=== PATIENT | male | born 1960 | race Caucasian/White ===

== ENCOUNTER 2016-07-01 01:39 | Inpatient (IN) | payer OTHER ==
[~2016-07-01] VITALS: Ht 180.3 cm; Wt 104.3 kg
[~2016-07-01 01:39] MED LIST: ASPIRIN EC325 M2 PO; ASPIRIN EC81 M1 PO; COLACE100 M1 PO; DAILY VALUE1 EACH PO; DILAUDID2 M1 PO; DUEXIS 800-26.1 EACH PO; FIBER-TABS625 MG PO; FLOMAX0.4 M1 PO; HYDROCODON-ACE1 EAC2 PO; IRBESARTAN75 M1 PO; LEVOTHYROXINE50 MCG PO; LOPRESSOR50 M1 PO; METFORMIN HCL500 M3 PO; MIRALAX17 G1 PO; MS CONTIN30 M1 PO; VITAMIN B-121000 MC3 PO; VITAMIN D31000 UNI1 PO
[2016-07-01] MEDS ORDERED: MORPHINE SULFAT15 M3 PO (08:59)
[2016-07-01] MEDS ORDERED: DILAUDID2 M1 PO (08:59)
[2016-07-01] MEDS ORDERED: COLACE100 M1 PO (08:59)
[2016-07-01] MEDS ORDERED: MIRALAX119 GM PO (08:59)
[2016-07-01] MEDS ORDERED: ASPIRIN EC325 M2 PO (08:59)
--- NOTE | 2016-07-01 09:01 | Admission Core Measures ---
Admission Meds I reviewed the following Meds: Current Medications Sig/Antonette Start time Last Medication Dose Stop Time Status Admin Cefazolin Sodium 2,000 MG ONE 07/01 0000 NR (Kefzol-Ancef Inj) 07/01 2359 Levothyroxine Sodium 0.05 MG DAILY AC 07/01 1000 AC (Synthroid) Losartan Potassium 25 MG DAILY 07/01 1000 AC (Cozaar) Metoprolol Tartrate 50 MG BID 07/01 1000 AC (Lopressor) Tamsulosin HCl 0.4 MG QPM 07/01 2200 AC (Flomax) Acute Coronary Syndrome Inclusion Criteria ACS Diagnosis No Inpatient Core Measures LDL Reminder: If No, please order W/I first 24hr of stay Congestive Heart Failure Inclusion Criteria CHF Diagnosis No Cerebrovascular accident Inclusion Criteria CVA/TIA Diagnosis No Inpatient Core Measures Bedside Swallow Eval Reminder: If BSE failed, place ST order Antithrombotic Reminder: Order Antithrombotic Medication by end of day 2 Antithrombotic Reminder: Document Reason Antithrombotic Not ordered by end of day 2 AFIB/Flutter Reminder: If Present, add to problem list AFIB/Flutter Reminder: Order Anticoag Medication for pts with AFIB/Flutter Atherosclerosis Reminder: If Present, add to problem list LDL Reminder: If No, please order W/I first 24hr of stay PT Order Reminder: If No, please order Venous thromboembolism Inpatient Core Measures VTE Risk Factors: Age > 40, Obesity, Surgery VTE Prophylaxis Ordered Inpt Mech & Pharm No Mech VTE prophylaxis d/t No contraindications No VTE Pharm Prophylaxis d/t No contraindications Inclusion Criteria - Per Current guidelines, there needs to be overlap - treatment for the first 5 days of Warfarin therapy. - Parenteral Anticoagulation (IV or SC) needs to be - given along with Warfarin therapy. VTE Diagnosis No VTE Type NONE VTE Confirmed by (Test) NONE Problem List As ranked by this Provider includes Assessment & Plan 1. Status post total hip replacement, left HOME MEDS Home Med List Aspirin (Ecotrin*) 325 MG TABLET.DR 1 TAB PO BID blood thinner Calcium Polycarbophil (Fiber-Tabs) (Unknown Strength) TABLET 1 TAB PO DAILY BOWEL HEALTH (Reported) Cholecalciferol (Vitamin D3) (Vitamin D3) 1,000 UNIT CAPSULE 1 CAP PO DAILY SUPPLEMENT (Reported) Cyanocobalamin (Vitamin B-12) 1,000 MCG TABLET 1 TAB PO DAILY SUPPLEMENT ( Reported) Docusate Sodium (Colace) 100 MG CAPSULE 1 CAP PO BID PRN CONSTIPATION Hydromorphone HCl (Dilaudid) 2 MG TABLET 1-2 TAB PO Q4-6P PRN PAIN Irbesartan 75 MG TABLET 1 TAB PO DAILY HTN (Reported) Levothyroxine Sodium 50 MCG TABLET 1 TAB PO DAILY THYROID (Reported) Metformin HCl 500 MG TABLET 1 TAB PO BID DM (Reported) Metoprolol Tartrate (Lopressor) 50 MG TABLET 1 TAB PO BID HTN (Reported) Morphine Sulfate (Morphine Sulfate ER) 15 MG TABLET.ER 1 TAB PO BID PAIN Multivitamin (Daily Value) 1 EACH TABLET 1 TAB PO DAILY SUPPLEMENT (Reported) Polyethylene Glycol 3350 (Miralax) 17 GRAM/DOSE POWDER 17 GM PO DAILY PRN CONSTIPATION Tamsulosin HCl (Flomax) 0.4 MG CAP.ER.24H 1 CAP PO QPM PROSTATE (Reported)
--- NOTE | 2016-07-01 09:05 | Patient Discharge Instructions ---
Discharge Instructions General Discharge Information You were seen/treated for: RIGHT HIP PAIN You had these procedures: 07/01/16 right total hip arthroplasty Watch for these problems: Redness, swelling, fever, signs of infection. Uncontrolled pain, Excessive bleeding. Decreased range of motion or unable to bear weight. Chest pain, shortness of breath. Call Surgeon to remove: Stitches Do not soak the wound: Yes No bath, but you may shower: Yes Other wound care: Daily dry dressing changes or as needed Diet Continue normal diet: Yes Activity Activity Self Limited: Yes Activity Limited to: Weight bear as tolerated Additional ACTIVITY Info: Daily physical therapy Acute Coronary Syndrome Inclusion Criteria At DC or during hospital stay patient has or had the following: ACS DIAGNOSIS No Discharge Core Measures Meds if any: Prescribed or Continued at Discharge Meds if any: NOT Prescribed or Continued at Discharge Congestive Heart Failure Inclusion Criteria At DC or during hospital stay patient has or had the following: CHF DIAGNOSIS No Discharge Core Measures Meds if any: Prescribed or Continued at Discharge Meds if any: NOT Prescribed or Continued at Discharge Cerebrovascular accident Inclusion Criteria At DC or during hospital stay patient has or had the following: CVA/TIA Diagnosis No Discharge Core Measures Meds if any: Prescribed or Continued at Discharge Meds if any: NOT Prescribed or Continued at Discharge Venous thromboembolism Inclusion Criteria VTE Diagnosis No VTE Type NONE VTE Confirmed by (Test) NONE Discharge Core Measures - Per Current guidelines, there needs to be overlap - treatment for the first 5 days of Warfarin therapy. - If discharged on Warfarin prior to 5 days of - overlap therapy, the patient will need to be - assessed for post discharge needs including - *Post discharge parental anticoagulation - *Warfarin and/or parental anticoagulation education - *Follow up date to check INR post discharge At least 5 days overlap therapy as Inpatient No Meds if any: Prescribed or Continued at Discharge Note: Overlap Therapy is Warfarin and Anticoagulant Meds if any: NOT Prescribed or Continued at Discharge
--- NOTE | 2016-07-01 09:06 | Surg Short-stay <48hrs Dis Sum ---
Visit Information Visit Dates Admission Date: 07/01/16 Discharge Date: 07/01/16 Surgical Short Stay DC Summary Admission Diagnosis: Right hip pain Final Diagnosis: Same Procedure(s): 06/23/2016 right total hip arthroplasty Summary/Significant Findings: Patient admitted to floor following listed procedure. Patient ambulated with PT upon arrival to the floor. Patient continued to progress well. Upon discharge patient is afebrile, tolerating diet, pain controlled, ambulating well with rolling walker and PT. Condition at Discharge: Good Discharge Disposition: home health services Discharge instructions provided to patient/family: Yes Post discharge follow-up plan: Call Dr. Cook's office to schedule/confirm appointment.
--- NOTE | 2016-07-01 10:30 | RADIOLOGY REPORT ---
EXAMINATION: XR HIP, RIGHT CLINICAL INFORMATION: Right hip replacement. COMPARISON: None TECHNIQUE: Two views of the right hip. FINDINGS: Status post right total hip arthroplasty. The femoral head prosthesis is well centered within the acetabular cup. The lateral version of the acetabular cup cannot be measured due to lack of inclusion of the pelvis in the [id number]. The acetabular cup is difficult to visualize on the lateral radiograph due to patient body habitus and/or insufficient photon penetration through the hips. The tip of the femoral stem is well centered in the proximal femoral diaphysis. No acute periprosthetic fracture. There is mild postoperative soft tissue swelling and soft tissue emphysema of the right hip. IMPRESSION: No evidence of postoperative complication. No periprosthetic fracture after the right total hip arthroplasty. Note that the acetabular cup is suboptimally visualized on the lateral radiograph.
[2016-07-01 11:00] VITALS: BP 108/72
--- NOTE | 2016-07-01 13:32 | PN- Orthopedic ---
Subjective Subjective: Pt oob, ambulating with PT, pain tolerable with po meds Tolerating diet without nausea No complaints post op Objective Vital Signs and I&Os Vital Signs Date Time Temp Pulse Resp B/P Pulse O2 O2 Flow FiO2 Ox Delivery Rate 07/01 1100 97.6 64 16 108/72 100 Room Air Intake & Output 07/01 1600 07/01 0800 07/01 0000 06/30 1600 06/30 0800 06/30 0000 Intake Total Output Total Balance Patient 230 lb Weight Physical Exam: afebrile, vss General: alert and oriented times three Chest:clear anteriorly bilaterally, RRR Abd: soft, good bs Ext: warm, no edema, positive sensate, no calf tenderness Wound: dressed, dry Current Medications: Current Medications Sig/Antonette Start time Last Medication Dose Route Stop Time Status Admin Acetaminophen 650 MG Q4P PRN 07/01 1100 AC PO Aspirin 325 MG BID 07/01 1000 AC PO Bupivacaine HCl/ 30 ML .STK-MED ONE 07/01 1002 DC Epinephrine Bitart SC 07/01 1003 Cefazolin Sodium 2 GM IQ8 07/01 1600 AC N/A 1 UNIT IV 07/02 0029 Cefazolin Sodium 2,000 MG ONE 07/01 0000 DC IV 07/01 2359 Clonidine 1 MCG .STK-MED ONE 07/01 1002 DC EPID 07/01 1003 Docusate Sodium 100 MG DAILY 07/01 1000 AC PO Hydromorphone HCl 2 MG Q4P PRN 07/01 1100 AC PO Hydromorphone HCl 4 MG Q4P PRN 07/01 1100 AC 07/01 PO 1219 Hydromorphone HCl 1 MG Q3P PRN 07/01 1100 AC IV Insulin Human Regular 0 TIDAC/HS 07/01 1200 AC 07/01 SC 1221 Levothyroxine Sodium 0.05 MG DAILY AC 07/01 1000 AC PO Losartan Potassium 25 MG DAILY 07/01 1000 AC PO Metoprolol Tartrate 50 MG BID 07/01 1000 AC PO Ondansetron HCl 4 MG Q6P PRN 07/01 1100 AC IV Oxycodone/ 1 TAB .STK-MED ONE 07/01 0820 DC Acetaminophen PO 07/01 0821 Polyethylene Glycol 17 GM DAILY 07/01 1000 AC PO Povidone Iodine 1 RENATE .STK-MED ONE 07/01 1002 DC TOP 07/01 1003 Sodium Chloride 1,000 ML .[id number] 07/01 1100 AC 07/01 IV 1221 Tamsulosin HCl 0.4 MG QPM 07/01 2200 AC PO Assessment/Plan Assessment/Plan 56 yo male s/p L TEODORO ambulating without difficulty await void pain well controlled pt recommending home with services plan to dc home once able to void, fu instructions given, asa 325mg po bid for dvt ppx Core Measures/Miscellaneous Venous Thromboembolism VTE Risk Factors: Age > 40 VTE Contraindications: No Contraindications VTE Prophylaxis Ordered Inpt: Mech & Pharm VTE Diagnosis: No VTE Type: NONE VTE Confirmed by (Test): NONE Beta Chanda Is Beta Chanda a Home Med? Yes If Yes, Was This Ordered Today? Yes Antibiotics Is Patient on Antibiotics? Yes If Yes: prophylaxis
--- NOTE | 2016-07-01 16:40 | Operative Report ---
Operative/Inv Procedure Report Surgery Date: 07/01/16 Name of Procedure: Right total hip replacement Pre-Operative Diagnosis: Primary right hip DJD Post-Operative Diagnosis: Same Estimated Blood Loss: 250 Surgeon/Community Associate: ETHAN MENDOZA,LUCINA Vazquez Anesthesia: block Operative/Procedure Note Note: Description of Procedure: The patient was taken to the operating room and positively identified. After induction of spinal anesthesia and administration of appropriate pre-operative antibiotics, the patient was positioned supine on the operating room table and all bony prominences were well padded. After performing a surgical timeout, the right lower extremity was prepped and draped in the usual sterile fashion. A direct anterior approach was made to the right hip. The incision was carried sharply through superficial soft tissues to the level of the fascia. Meticulous hemostasis was maintained with Bovie electocautery. The fascia over the tensor fascia aroldo muscle was opened sharply and the interval between the TFL and the sartorius was entered bluntly taking care to stay lateral to the lateral femoral cutaneous nerve. Retractors were placed around the femoral neck and the pericapsular fat was identified. The ascending branches of the lateral femoral circumflex vessels were identified and carefully coagulated. The pericapsular fat and anterior capsule were then resected. A napkin ring osteotomy was performed and the femoral head was removed without difficulty. Attention was then turned to the acetabulum. After appropriate placement of retractors, the acetabulum was exposed. Soft tissue was cleaned from the acetabular margin and notch. Overhanging osteophytes were removed and the teardrop was exposed. The acetabulum was then sequentially reamed to accept a 60 mm Kim Tritanium hemispherical solid back shell. This was impacted into place in the appropriate position and fitted with a 36 mm Trident X3 zero degree polyethylene insert. Attention was then turned to the femur. After performing the appropriate ligament releases, the proximal femur was exposed. It was then sequentially broached to accept a size 5 Pooler Anato stem. This was trialed for leg length and stability. The trial component was removed and the final component was impacted into place. The trunnion was carefully cleaned and fit with a 36 mm, + 0 Biolox delta ceramic femoral head. The hip was reduced and put through a full range of motion and found to be stable. The articular space was then irrigated with sterile saline. The periarticular soft tissues were infilitrated with Marcaine. The fascial layer was closed with interrupted #1 vicryl suture and the skin was re-approximated with interrupted 2 -0 vicryl. The skin was closed with a running 3-0 V-Lock suture. Steri-strips and a sterile dressing were applied. The patient was awakened and taken to the recovery room in satisfactory condition.
[2016-10-09] MEDS ORDERED: TOPROL XL100 M1 PO (11:53)
== END 2016-07-01 15:35 | disposition home health service (06) | DRG 470 ==
LOC: SDA 01:39 → 2NA 10:40
PROVIDERS: ADMIT Orthopaedic Surgery
PROC: 0SR904A Replacement of Right Hip Joint with Ceramic on Polyethylene Synthetic Substitute, Uncemented, Open Approach (ICD-10-PCS; principal; 2016-07-01)
DX: M16.11 Unilateral primary osteoarthritis, right hip (principal); I48.91 Unspecified atrial fibrillation
CPT/HCPCS: 2NAP; 73502-RT; 88304; 97001-GP; 97112-GO; 97116-GO; 97161-GP; 97530-GO; J0690; J0735; J2405

== ENCOUNTER 2016-10-14 04:18 | Inpatient (IN) | payer OTHER ==
[~2016-10-14] VITALS: Ht 180.3 cm; Wt 106.6 kg
[~2016-10-14 04:18] MED LIST changes: +MIRALAX119 GM PO; +MORPHINE SULFAT15 M3 PO; +TOPROL XL100 M1 PO
--- NOTE | 2016-10-14 13:14 | Admission Core Measures ---
Admission Meds I reviewed the following Meds: Current Medications Sig/Antonette Start time Last Medication Dose Stop Time Status Admin Acetaminophen 975 MG ONCE 10/14 0000 NR (Tylenol) 10/14 2358 Cefazolin Sodium 2,000 MG ONCE 10/14 NR (Kefzol-Ancef Inj) 10/14 2358 Levothyroxine Sodium 0.05 MG DAILY AC 10/15 0700 AC (Synthroid) Losartan Potassium 25 MG DAILY 10/15 1000 AC (Cozaar) Metoprolol Succinate 100 MG DAILY 10/15 1000 AC (Toprol Xl) Oxycodone HCl 10 MG ONCE 10/14 0000 NR (Roxicodone) 10/14 2358 Tamsulosin HCl 0.4 MG QPM 10/14 2200 AC (Flomax) Acute Coronary Syndrome Inclusion Criteria ACS Diagnosis No Inpatient Core Measures LDL Reminder: If No, please order W/I first 24hr of stay Congestive Heart Failure Inclusion Criteria CHF Diagnosis No Cerebrovascular accident Inclusion Criteria CVA/TIA Diagnosis No Inpatient Core Measures Bedside Swallow Eval Reminder: If BSE failed, place ST order Antithrombotic Reminder: Order Antithrombotic Medication by end of day 2 Antithrombotic Reminder: Document Reason Antithrombotic Not ordered by end of day 2 AFIB/Flutter Reminder: If Present, add to problem list AFIB/Flutter Reminder: Order Anticoag Medication for pts with AFIB/Flutter Atherosclerosis Reminder: If Present, add to problem list LDL Reminder: If No, please order W/I first 24hr of stay PT Order Reminder: If No, please order Venous thromboembolism Inpatient Core Measures VTE Risk Factors: Age > 40, Surgery No [facility] VTE prophylaxis d/t No contraindications No VTE Pharm Prophylaxis d/t No contraindications Inclusion Criteria - Per Current guidelines, there needs to be overlap - treatment for the first 5 days of Warfarin therapy. - Parenteral Anticoagulation (IV or SC) needs to be - given along with Warfarin therapy. VTE Diagnosis No VTE Type NONE VTE Confirmed by (Test) NONE Problem List As ranked by this Provider includes Assessment & Plan 1. Status post total hip replacement, left HOME MEDS Home Med List Aspirin (Ecotrin*) 325 MG TABLET.DR 1 TAB PO BID blood thinner Calcium Polycarbophil (Fiber-Tabs) (Unknown Strength) TABLET 1 TAB PO DAILY BOWEL HEALTH (Reported) Cholecalciferol (Vitamin D3) (Vitamin D3) 1,000 UNIT CAPSULE 1 CAP PO DAILY SUPPLEMENT (Reported) Cyanocobalamin (Vitamin B-12) 1,000 MCG TABLET 1 TAB PO DAILY SUPPLEMENT ( Reported) Irbesartan 75 MG TABLET 1 TAB PO DAILY HTN (Reported) Levothyroxine Sodium 50 MCG TABLET 1 TAB PO DAILY THYROID (Reported) Metformin HCl 500 MG TABLET 1 TAB PO BID DM (Reported) Metoprolol Succ XL (Toprol XL) 100 MG TAB.ER.24H 1 TAB PO DAILY HTN (Reported ) Polyethylene Glycol 3350 (Miralax) 17 GRAM/DOSE POWDER 17 GM PO DAILY PRN CONSTIPATION Tamsulosin HCl (Flomax) 0.4 MG CAP.ER.24H 1 CAP PO QPM PROSTATE (Reported)
[2016-10-14] MEDS ORDERED: PRILOSEC OTC20 M1 PO (13:16)
[2016-10-14] MEDS ORDERED: ASPIRIN EC325 M2 PO (13:16)
[2016-10-14] MEDS ORDERED: MIRALAX17 G1 PO (13:16)
[2016-10-14] MEDS ORDERED: COLACE100 M1 PO (13:16)
[2016-10-14] MEDS ORDERED: MS CONTIN30 M1 PO (13:16)
[2016-10-14] MEDS ORDERED: DILAUDID2 M1 PO (13:16)
--- NOTE | 2016-10-14 13:21 | Patient Discharge Instructions ---
Discharge Instructions General Discharge Information You were seen/treated for: Mechanical complications of left total hip replacement You had these procedures: Revision left total hip replacement Watch for these problems: Increasing pain despite the use of pain medication. Increasing redness, warmth, or swelling. Drainage of any type from incision. Inability to bear weight on left leg. Fever greater than 101.5 degrees. Do not soak the wound: Yes No bath, but you may shower: Yes Other wound care: Keep wound clean and dry. Daily dry dressing changes. No ointments of any type on incision, no exceptions. Diet Continue normal diet: Yes Recommended Diet: Diabetic Additional DIET Information: Advance as tolerated Activity Full Activity/No Limits: No Activity Self Limited: Yes Pounds, do NOT lift more than: 10 Additional ACTIVITY Info: weight bear as tolerated left hip Acute Coronary Syndrome Inclusion Criteria At DC or during hospital stay patient has or had the following: ACS DIAGNOSIS No Discharge Core Measures Meds if any: Prescribed or Continued at Discharge Meds if any: NOT Prescribed or Continued at Discharge Congestive Heart Failure Inclusion Criteria At DC or during hospital stay patient has or had the following: CHF DIAGNOSIS No Discharge Core Measures Meds if any: Prescribed or Continued at Discharge Meds if any: NOT Prescribed or Continued at Discharge Cerebrovascular accident Inclusion Criteria At DC or during hospital stay patient has or had the following: CVA/TIA Diagnosis No Discharge Core Measures Meds if any: Prescribed or Continued at Discharge Meds if any: NOT Prescribed or Continued at Discharge Venous thromboembolism Inclusion Criteria VTE Diagnosis No VTE Type NONE VTE Confirmed by (Test) NONE Discharge Core Measures - Per Current guidelines, there needs to be overlap - treatment for the first 5 days of Warfarin therapy. - If discharged on Warfarin prior to 5 days of - overlap therapy, the patient will need to be - assessed for post discharge needs including - *Post discharge parental anticoagulation - *Warfarin and/or parental anticoagulation education - *Follow up date to check INR post discharge At least 5 days overlap therapy as Inpatient No Meds if any: Prescribed or Continued at Discharge Note: Overlap Therapy is Warfarin and Anticoagulant Meds if any: NOT Prescribed or Continued at Discharge
--- NOTE | 2016-10-14 13:25 | Surgical Discharge Summary ---
Visit Information Visit Dates Admission Date: 10/14/16 Discharge Date: 10/15/16 History of Present Illness Chief Complaint: Mechanical complications following left total hip replacement. Medical History Cardiovascular: A FIB HYPERTENSION Respiratory: SLEEP APNEA Gastrointestinal: GERD Hepatic: HEPATITIS C Endocrine: diabetes, hypothyroidism History of MRSA: No History of VRE: No History of CDIFF: No Surgical History Pertinent Surgical History: R RCR C5-7 TONSILECTOMY R & L KNEE REPLACEMENT AFIB ABLATION HIATAL HERNIA Psychosocial History What is Your Primary Language? Lebanese Review of Systems: See H&P Hospital Course Course Attending Physician: LUCINA LONG MD Primary Care Physician: MAIN FUNG MD Hospital Course: Aaron was admitted to the hospital on 10/14/2016 for a revision of a left total hip replacement. He tolerated the procedure well and was transferred to a general surgical floor. His vital signs remained stable and within normal limits. His neurovascular status remained intact. He voided spontaneously. His diet was advanced and tolerated. His pain was well controlled with the use of po pain medications. He was evaluated and treated by physical therapy and was deemed appropriate for discharge. Allergies: Uncoded Allergies: SEASONAL ALLERGIES (Intermediate, NASAL CONGESTION 10/09/16) Disposition Summary Disposition Principal Diagnosis: Mechanical complications of left total hip replacement. Additional Diagnosis: None Discharge Disposition: home health services Discharge Instructions General Discharge Information Code Status: Full Code Patient's Diet: Diabetic, advance as tolerated Patient's Activity: WBAT Follow-Up Instructions/Appts: Follow up with Dr. Long in 6 weeks from date of surgery. Call office to arrange or confirm appointment. Medications at Discharge Discharge Medications: Stop taking the following medications: Aspirin (Ecotrin*) 325 MG TABLET. ORAL TWICE DAILY Qty = 60 Polyethylene Glycol 3350 (Miralax) 17 GRAM/DOSE POWDER ORAL DAILY as needed for CONSTIPATION Qty = 527 Continue taking these medications: Irbesartan (Irbesartan) 75 MG TABLET 1 Tablet ORAL DAILY Comments: Last Taken:LORSARTAN TAB COZAAR GIVEN 10/15/16 AT 0840 Levothyroxine Sodium (Levothyroxine Sodium) 50 MCG TABLET 1 Tablet ORAL DAILY Comments: Last Taken:10/15/16 Time:0633 Metformin HCl (Metformin HCl) 500 MG TABLET 1 Tablet ORAL TWICE DAILY Comments: Last Taken:NOT TAKEN IN HOSPITAL Time: Tamsulosin HCl (Flomax) 0.4 MG CAP.ER.24H 1 Capsule ORAL Every night Comments: Last Taken:10/15/16 Time:0835 Calcium Polycarbophil (Fiber-Tabs) (Unknown Strength) TABLET 1 Tablet ORAL DAILY Comments: NOT GIVEN IN HOSPITAL Cholecalciferol (Vitamin D3) (Vitamin D3) 1,000 UNIT CAPSULE 1 Capsule ORAL DAILY Comments: NOT GIVEN IN HOSPITAL Cyanocobalamin (Vitamin B-12) 1,000 MCG TABLET 1 Tablet ORAL DAILY Comments: NOT GIVEN IN HOSPITAL Metoprolol Succ XL (Toprol XL) 100 MG TAB.ER.24H 1 Tablet ORAL DAILY Comments: Last Taken:10/15/16 Time:0840 Start taking the following new medications: Aspirin (Ecotrin*) 325 MG TABLET. 1 Tablet ORAL TWICE DAILY Qty = 60 No Refills Comments: Last Taken:10/15/16 Time:0840 Docusate Sodium (Colace) 100 MG CAPSULE 1 Capsule ORAL TWICE DAILY Qty = 14 No Refills Instructions: DISCONTINUE USE IF YOU DEVELOP LOOSE STOOL OR DIARRHEA Comments: Last Taken:10/15/16 Time:0830 Hydromorphone HCl (Dilaudid) 2 MG TABLET 1-2 Tablet ORAL EVERY 4-6 HOURS as needed for PAIN Qty = 36 No Refills Comments: Last Taken:10/15/16 Time:0842 Morphine Sulfate (Ms Contin) 30 MG TABLET.ER 1 Tablet ORAL TWICE DAILY Qty = 6 No Refills Comments: Last Taken:10/15/16 Time:0842 Omeprazole Magnesium (Prilosec Otc) 20 MG TABLET. 1 Tablet ORAL DAILY Qty = 30 No Refills Comments: Last Taken:10/15/16 Time:0632 Polyethylene Glycol 3350 (Miralax) 17 GRAM POWD.PACK 1 Packet ORAL DAILY Qty = 7 No Refills Instructions: dissolve in water, DISCONTINUE USE IF YOU DEVELOP LOOSE STOOL OR DIARRHEA Comments: Last Taken:PT REFUSED MEDICATION Time:
--- NOTE | 2016-10-14 16:02 | Operative Report ---
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 After induction of spinal and general anesthesia and administration of appropriate pre -operative antibiotics, the patient was positioned supine on the operating room table and all bony prominences were well padded. After performing a surgical timeout, the left lower extremity was prepped and draped in the usual sterile fashion. A direct anterior approach was made to the left hip. The incision was carried sharply through superficial soft tissues to the level of the fascia. Meticulous hemostasis was maintained with Bovie electocautery. The fascia over the tensor fascia aroldo muscle was opened sharply and the interval between the TFL and the sartorius was entered bluntly taking care to stay lateral to the lateral femoral cutaneous nerve. Scar tissue was resected until the femoral neck and head were visible. Retractors were placed and scar tissue resection continued until the hip could be dislocated. Once the hip was dislocated and further scar tissue release was carried out, the femoral head was disimpacted without difficulty. Posterior capsular scar was incised as was medial capsule. This allowed mobilization of the femur anteriorly and medially. It was then noted that the femoral stem clearly had micromotion when manipulated. A single Dall-Miles cable was placed around the proximal femur prophylactically. Utilizing a small curet soft tissue was cleared from the medial calcar region as well as the area of the greater trochanter until the heel of the implant was fully exposed. Flexible osteotomes were used to sure that any spot welds were disrupted prior to disimpacting the stem. The stem disimpacting tool for the Anato stem was utilized to back slap the stem out. There is little bony on growth was noted. Attention was then turned to the distal pedestal. Quofore T handle pointed awls were used to penetrate the distal pedestal. Cylindrical reamers were then used to re-create the canal. The canal was then sequentially reamed and broached to accept a size 9 Kim Secur-Fit Advanced 127 neck angle stem. This was then trialed for leg length and stability. The trial component was removed and the final component was impacted into place. The trunnion was well cleaned and fit with a 36 mg -2.5 Biolox delta ceramic femoral head. The articular space was then irrigated with sterile saline. A medium Hemovac drain was left in the intra-articular space. The periarticular soft tissues were infilitrated with Marcaine. The fascial layer was closed with interrupted #1 vicryl suture and the skin was re-approximated with interrupted 2-0 vicryl. The skin was closed with a running 3-0 V-Lock suture. Steri-strips and a sterile dressing were applied. The patient was awakened and taken to the recovery room in satisfactory condition.
--- NOTE | 2016-10-14 16:56 | RADIOLOGY REPORT ---
EXAMINATION: XR HIP, LEFT CLINICAL INFORMATION: Left total hip replacement COMPARISON: 05/06/2016 TECHNIQUE: AP and crosstable lateral views of the left hip. FINDINGS: Prosthetic components of the left total hip arthroplasty are appropriately aligned. No periprosthetic fracture. Proximal femoral cerclage wire and drainage tubing are in place. Gas from recent surgery is present in the surrounding soft tissues. IMPRESSION: Normal postoperative appearance of the left total hip prosthesis status post revision.
--- NOTE | 2016-10-14 17:55 | NUR ---
ARRIVED TO FLOOR. A & O X 3. ON RA. VSS. C/O MILD PAIN TO LEFT HIP. DSG C/D/I. HEMOVAC TO SELF SUCTION. +CMS. ORIENTED TO CALL SYSTEM. WILL MONITOR.
[2016-10-14 18:15] VITALS: BP 128/80
[2016-10-14 20:07] VITALS: BP 126/90
--- NOTE | 2016-10-14 20:13 | PN- Orthopedic ---
Subjective Subjective: POC S/P LEFT TEODORO REVISION NO MAJOR COMPLAINTS DENIES CP, SOB, NO N+V WITH DIET Objective Vital Signs and I&Os Vital Signs Date Time Temp Pulse Resp B/P B/P Pulse O2 O2 Flow FiO2 Mean Ox Delivery Rate 10/14 2006 98.1 73 20 126/90 96 Room Air 10/14 1815 97.9 61 16 128/80 97 Room Air Physical Exam: CV: RRR LUNGS: CLEAR ABD: SOFT, +BS, EXT: LEFT THIGH SOFT DISTAL CMS INTACT BILAT ROSE MARIE-MINIMAL SANGUINOUS DRAINAGE Assessment/Plan Assessment/Plan ORTHO STABLE PLAN OOB WITH PT IN AM ASA FOR DVT PROPHYLAXIS PLAN FOR HOME D/C IN AM Core Measures/Miscellaneous Venous Thromboembolism VTE Risk Factors: Age > 40, Surgery VTE Contraindications: No Contraindications VTE Diagnosis: No VTE Type: NONE VTE Confirmed by (Test): NONE Beta Chanda Is Beta Chanda a Home Med? Yes Antibiotics Is Patient on Antibiotics? Yes If Yes: prophylaxis
[2016-10-14 22:35] VITALS: BP 146/100
[2016-10-15 00:07] VITALS: BP 142/80
[2016-10-15 04:18] VITALS: BP 128/76
--- NOTE | 2016-10-15 07:42 | PN- Orthopedic ---
Subjective Subjective: The patient seen this morning postoperatively day #1. He reports that he is slightly more uncomfortable than his initial procedure. He had no other complaints at the current time and was a good work with physical therapy. Objective Vital Signs and I&Os Vital Signs Date Time Temp Pulse Resp B/P B/P Pulse O2 O2 Flow FiO2 Mean Ox Delivery Rate 10/15 417 98.4 80 20 128/76 98 Room Air 10/15 0007 98.2 75 20 142/80 96 Room Air 10/14 2234 98.3 81 20 146/100 97 Room Air 10/14 2107 73 126/90 10/14 2006 98.1 73 20 126/90 96 Room Air 10/14 181 97.9 61 16 128/80 97 Room Air Intake & Output 10/15 0810/15 0000 10/14 1600 10/14 0810/14 1600 Intake Total 400 Output Total 1200 730 Balance -1200 -330 Intake, IV 300 Intake, Oral 100 Number 0 Bowel Movements Output, 80 Drainage Output, Urine 1200 650 Patient 235 lb Weight Weight Reported by Patient Measurement Method Physical Exam: Gen.: Alert and in no obvious distress Skin: Warm and dry Extremities: Bilateral lung studies are warm without calf tenderness or significant edema. Gross motor and sensory were intact. Left surgical dressing was blood tinged but otherwise intact. There is a Suretrans drain in place holding suction with sinus drainage in the collection chamber. Assessment/Plan Assessment/Plan Assessment: 56-year-old male status post revision left total hip arthroplasty postoperative day 1. The patient is progressing as expected however his pain is not adequately managed. Plan: Add MS Contin 30 mg by mouth twice a day to existing pain regiment Hep-Lock IV fluids Follow-up morning laboratory studies Out of bed with physical therapy MT Hemovac GI and DVT prophylaxis Home later today if goals met Core Measures/Miscellaneous Venous Thromboembolism VTE Risk Factors: Age > 40, Surgery VTE Contraindications: No Contraindications VTE Diagnosis: No VTE Type: NONE VTE Confirmed by (Test): NONE Beta Chanda Is Beta Chanda a Home Med? Yes Antibiotics Is Patient on Antibiotics? Yes If Yes: prophylaxis
[2016-10-15 08:07] LABS: ABSOLUTE BASOPHIL COUNT 0 /CUMM (0.0-0.2); ABSOLUTE EOSINOPHIL COUNT 0 /CUMM (0.0-0.7); ABSOLUTE GRANULOCYTE CT 9.1 /CUMM (1.4-6.5); ABSOLUTE LYMPH COUNT 1.1 /CUMM (1.2-3.4); ABSOLUTE MONOCYTE COUNT 0.8 /CUMM (0.10-0.60); BASOPHIL % 0.1 % (0.0-2.0); EOSINOPHIL % 0.4 % (0-5); GRANULOCYTE % 82.8 % (42.2-75.2); HEMATOCRIT 35.7 % (42-52); MEAN CORPUSCULAR HGB 28.2 PG (27.0-31.0); MEAN CORPUSCULAR HGB CONC 33.5 G/DL (33.0-37.0); MEAN CORPUSCULAR VOLUME 84.2 FL (80.0-94.0); MEAN PLATELET VOLUME 9.3 FL (7.4-10.4); PLATELET COUNT 147 /CUMM (130-400); RBC DISTRIBUTION WIDTH 14.7 % (11.5-14.5); RED BLOOD CELL CT 4.24 /CUMM (4.70-6.10)
[2016-10-15 08:41] VITALS: BP 140/80
== END 2016-10-15 11:31 | disposition home health service (06) | DRG 468 ==
LOC: SDA 04:18 → ENRESERV 15:31 → 2NA 18:00 → ENPENDDIS 10-15 07:43 → 2NA 10-15 11:31
PROVIDERS: Nurse Practitioner; ADMIT Orthopaedic Surgery
PROC: 0SRS03A Replacement of Left Hip Joint, Femoral Surface with Ceramic Synthetic Substitute, Uncemented, Open Approach (ICD-10-PCS; principal; 2016-10-14)
PROC: 0SPS0JZ Removal of Synthetic Substitute from Left Hip Joint, Femoral Surface, Open Approach (ICD-10-PCS; principal; 2016-10-14)
DX: T84.091A Other mechanical complication of internal left hip prosthesis, initial encounter (principal); I10 Essential (primary) hypertension; Y83.8 Other surgical procedures as the cause of abnormal reaction of the patient, or of later complication, without mention of misadventure at the time of the procedure; E03.9 Hypothyroidism, unspecified; E11.9 Type 2 diabetes mellitus without complications
CPT/HCPCS: 2NASP; 73502-LT; 82436; 97116-GO; 97161-GP; 97530-GO; J0131; J0690; J0735; J1200; J1815; J2405; J2550; J7042; J7508